=== PATIENT | female | born 1955 | race Caucasian/White ===

== ENCOUNTER → 2019-05-27 | Day surgery (SDC) | payer MEDICARE ==
[2019-05-25 12:44] LABS: BASOPHILS # (AUTO) 0.1 (0.0-0.1); BASOPHILS % 0.7 % (0.0-1.0); EOSINOPHILS # (AUTO) 0.1 (0.0-0.4); EOSINOPHILS % 1.4 % (0.0-6.0); HEMATOCRIT 46.9 % (34.2-44.1); HEMOGLOBIN 15.3 g/dL (12.0-16.0); LYMPHOCYTES # (AUTO) 2.5 (1.0-3.2); LYMPHOCYTES % 24.5 % (18.0-39.1); MEAN CORPUSCULAR HEMOGLOBIN 30.7 pg (28-32); MEAN CORPUSCULAR HGB CONC 32.6 g/dL (31-35); MEAN CORPUSCULAR VOLUME 94.2 fL (81-99); MONOCYTES # (AUTO) 0.5 (0.2-0.8); MONOCYTES % 4.5 % (4.4-11.3); NEUTROPHILS # (AUTO) 7.1 (2.1-6.9); NEUTROPHILS % 68.3 % (38.7-80.0); PLATELET COUNT 391 x10e3/uL (140-360); RED BLOOD COUNT 4.98 x10e6/uL (3.6-5.1); RED CELL DISTRIBUTION WIDTH 12.5 % (11.7-14.4)
--- NOTE | 2019-05-25 13:57 | Diagnostic Imaging Report ---
EXAMINATION: CHEST 2 VIEWS INDICATION: Pre-operative COMPARISON: None FINDINGS: LINES/TUBES:None LUNGS:The lungs are well-inflated. No focal consolidation or pulmonary edema. PLEURA:No pleural effusion or pneumothorax. MEDIASTINUM:The cardiomediastinal silhouette appears normal in size and shape. Right diaphragmatic eventration. BONES/SOFT TISSUES:No acute osseous injury. Degenerative changes of the visualized spine. Grade 1 retrolisthesis at T11-12. ABDOMEN:No free air under the diaphragm. IMPRESSION: No focal pneumonia or pulmonary edema. Signed by: Terrell Evans MD on 05/25/2019 1:54 PM
[~2019-05-27] MED LIST: BUPIVACAINE HCL 0.5% INJ 30 ML VIAL INJ ONE; CEFAZOLIN SOD 1 GM/NS 50ML 100 ML IV ONE; CLONAZEPAM1 MG PO; DEXAMETHASONE SOD PHOS INJ 4 MG/ML VIAL ONE; FENTANYL CITRATE/PF 100MCG/2 ML INJ ONE; KETOROLAC TROMETHAMINE 30 MG/ML VIAL ONE; LIDOCAINE HCL 1% LOCAL INJ 20 ML VIAL ONE; LIDOCAINE HCL 2% LOCAL INJ 5 ML SDV VIAL INJ ONE; MULTIVITAMINS1 EAC8 PO; ONDANSETRON HCL INJ 2MG/ML 2ML 2 MG/ML VIAL ONE; PROPOFOL IV EMULSION 10 MG/ML 20 ML VIAL ONE; SEROQUEL25 MG PO; SEVOFLURANE INHAL SOLN 250 ML PEN BTL ONE; WOMEN'S DAILY1 EAC2
--- OUTSIDE RECORDS SUMMARY | 2019-05-27 10:07 | XMS REPORT | Clinical Summary ---
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 Last Filed Vital Signs Not on file Plan of Treatment Health Maintenance Due Date Last Done Comments BREAST CANCER SCREENING 2007 COLONOSCOPY SCREENING 2007 SHINGLES VACCINES (#1) 2007 INFLUENZA VACCINE 05/14/2019 Results Not on fileafter 05/26/2018 Insurance Type Payer Benefit Subscriber ID Effective Phone Address Plan / Dates Group PPO COVENTRY/FIRST [employer] COVENTRY xxxxxxxxxx 2016-P /FIRST [facility] Advance Directives Patient has advance care planning documents on file. For more information, pleas e contact: Quang Ceja [address] [place] [address]
--- OUTSIDE RECORDS SUMMARY | 2019-05-27 10:07 | XMS REPORT ---
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 Allergies, Adverse Reactions, Alerts This patient has no known allergies or adverse reactions. Medications This patient has no known medications. Results Test Description Test Time Test Comments Text Results Atomic Results Result Comments CHEST 2 VIEWS 2019-05-25 13:53:00 [place] [address] Patient Name: KJ CONCEPCION MR #: [id number] : 1955 Age/Sex: 63/F Req #: [id number] Adm Physician: Ordered by: KONG ARREOLA MD Report #: [id number] Location: OR Room/Bed: Procedure: [id number] DX/CHEST 2 VIEWS Exam Date: 05/25/19 Exam Time: 1236 REPORT STATUS: Signed EXAMINATION: CHEST 2 VIEWS INDICATION: Pre-operative COMPARISON: None FINDINGS: LINES/TUBES:None LUNGS:The lungs are well-inflated. No focal consolidation or pulmonary edema. PLEURA:No pleural effusion or pneumothorax. MEDIASTINUM:The cardiomediastinal silhouette appears normal in size and shape. Right diaphragmatic eventration. BONES/SOFT TISSUES:No acute osseous injury. Degenerative changes of the visualized spine. Grade 1 retrolisthesis at T11- 12. ABDOMEN:No free air under the diaphragm. IMPRESSION: No focal pneumonia or pulmonary edema. Signed by: Imani Dexter MD on 05/25/2019 1:54 PM Dictated By: IMANI DEXTER MD [id number] Transcribed By: SHAHRZAD on 05/25/19 [id number] COPY TO: KONG ARREOLA MD SCR MAMM BILATERAL ALEK CAD DIGITAL 2019-03-17 12:45:16 - SCR MAMM BILATERAL ALEK CAD DIGITALBILATERAL DIGITAL SCREENING MAMMOGRAM 3D/2D WITH CAD: 03/17/2019CLINICAL: Asymptomatic. Digital breast tomosynthesis was performed in addition to routine CC and MLO views. Current mammographic images were evaluated by either a [employer] M-Vu or a [email or web address] ImageChecker CAD (computer aided detection system). Comparison is made to exams dated 05/08/2013 mammogram and 10/30/2011 mammogram - [facility]-. There are scattered fibroglandular tissues in both breasts. No suspicious mass, architectural distortion, malignant type calcification, or lymph node abnormality detected. Breast architecture is stable compared to prior exams.IMPRESSION: NEGATIVEThere is no mammographic evidence of malignancy. Resume annual screening mammography in one year. Kai Begum M.D. ss/penrad:03/17/2019 12:45:16 External Grinder Tender: Christy Villanueva , [facility]-FWletter sent: BIRADS 1-2 Normal Mammogram BI-RADS: 1 Negative
[2019-05-27] MEDS: MIDAZOLAM HCL 2 MG/2 ML VIAL ONE ×2 (11:01→11:13)
--- NOTE | 2019-05-27 12:35 | Operative Report ---
DATE OF PROCEDURE: 05/27/2019 SURGEON: Boston Cutler MD PREOPERATIVE DIAGNOSIS: Soft tissue mass, left upper arm. POSTOPERATIVE DIAGNOSIS: Soft tissue mass, left upper arm. PROCEDURE: Excision of soft tissue mass, left upper arm, 5 cm layered with layered closure. INSTRUMENTATION INSTRUCTOR: None. ANESTHESIA: General. INDICATIONS AND FINDINGS: The patient is a 63-year-old female with complains of a mass in the left upper arm, that is increased in size. At Surgery, based on this well-circumscribed fatty tumor within the subcutaneous tissue, left upper arm, which extended to the skin, which was about 5 cm in diameter. TECHNIQUE: After adequate general anesthesia, the patient in supine position, and the left upper arm was prepped and draped in a sterile fashion with ChloraPrep solution. The mass is in medial aspect of left upper arm. An elliptical incision was made encompassing for some of the skin over the mass, which was within the subcutaneous tissue. The mass was found to be a well-circumscribed fatty tumors, were completely excised. The surrounding tissues extended down to the superficial fascia, but did not go any deeper, about 5 cm in diameter was completely excised. Hemostasis was achieved with electrocautery. The wound was then infiltrated with 0.5% Marcaine. The wound was then closed in layers with 3-0 Vicryl subcutaneous tissue and 4-0 Vicryl subcuticular to the skin. Dermabond and sterile dressing were applied. The patient tolerated the procedure well. Estimated blood loss was less than 5 mL. There were no complications. All counts were correct. The patient was taken to the recovery room in satisfactory condition. Boston Cutler MD DWG/MODL /[id number]
[2019-05-27 13:15] VITALS: BP 136/88
== END | disposition home or self-care (01) ==
LOC: OR 09:51
PROVIDERS: ATTEND Surgery
DX: D17.22 Benign lipomatous neoplasm of skin and subcutaneous tissue of left arm (principal); Z01.810 Encounter for preprocedural cardiovascular examination; Z01.812 Encounter for preprocedural laboratory examination; Z01.811 Encounter for preprocedural respiratory examination; I10 Essential (primary) hypertension; M54.9 Dorsalgia, unspecified; F41.9 Anxiety disorder, unspecified; Z86.19 Personal history of other infectious and parasitic diseases; Z88.8 Allergy status to other drugs, medicaments and biological substances
CPT/HCPCS: 24071; 36415; 71046; 85025; 88304; 93005; J0690; J1100; J1885; J2001; J2250; J2405; J2704; J3010